=== PATIENT | male | born 1950 | race Caucasian/White ===

== ENCOUNTER 2017-03-14 11:08 | Inpatient (IN) | payer MEDICARE, OTHER ==
[~2017-03-14] VITALS: Ht 182.9 cm; Wt 139.2 kg
[2017-03-14] VITALS (7 sets, daily range): BP systolic 132–158; BP diastolic 69–83
[2017-03-14] MEDS ORDERED: AMLODIPINE BESY10 MG PO (15:12)
[2017-03-14] MEDS ORDERED: CHILDREN'S ASPI81 M1 PO (15:12)
[2017-03-14] MEDS ORDERED: ZYRTEC ALLERGY10 MG PO (15:12)
[2017-03-14] MEDS ORDERED: FLONASE ALLERG9.9 ML NS (15:14)
[2017-03-14] MEDS ORDERED: ZESTORETIC 20-1 EACH PO ×2 (15:15→15:18)
[2017-03-14] MEDS ORDERED: ZOCOR40 M1 PO (15:16)
[2017-03-14] MEDS ORDERED: NITROGLYCERIN0.4 M1 SL (15:16)
[2017-03-14] MEDS ORDERED: SYNTHROID137 MCG PO (15:17)
[2017-03-14] MEDS ORDERED: BETAPACE80 M1 PO (15:17)
[2017-03-14] MEDS ORDERED: LEVITRA20 M1 PO (15:17)
[2017-03-14] MEDS ORDERED: COUMADIN 5MG5 MG/TAB PO (15:18)
[2017-03-15 03:10] VITALS: BP 152/84
[2017-03-15 06:21] VITALS: BP 126/79
[2017-03-15 11:28] VITALS: BP 122/70
[2017-03-15 15:12] VITALS: BP 129/69
[2017-03-15 18:27] VITALS: BP 115/63
[2017-03-15 23:22] VITALS: BP 119/59
[2017-03-16] VITALS (8 sets, daily range): BP systolic 95–158; BP diastolic 52–89
[2017-03-17 02:36] VITALS: BP 145/83
[2017-03-17 06:26] VITALS: BP 100/56
[2017-03-17 11:13] VITALS: BP 130/77
[2017-03-17 14:47] VITALS: BP 115/70
[2017-03-17 18:24] VITALS: BP 122/77
[2017-03-17 23:09] VITALS: BP 151/95
[2017-03-18 03:15] VITALS: BP 141/76
[2017-03-18 06:34] VITALS: BP 147/81
== END 2017-03-18 10:34 | disposition short-term general hospital (02) | DRG 190 ==
LOC: MED/SURG 11:08
PROVIDERS: ADMIT Nurse Practitioner Family
DX: J44.0 Chronic obstructive pulmonary disease with (acute) lower respiratory infection (principal); I42.9 Cardiomyopathy, unspecified; Z68.41 Body mass index [BMI] 40.0-44.9, adult; I10 Essential (primary) hypertension; I48.0 Paroxysmal atrial fibrillation; F17.210 Nicotine dependence, cigarettes, uncomplicated; G47.33 Obstructive sleep apnea (adult) (pediatric); E66.01 Morbid (severe) obesity due to excess calories; K21.9 Gastro-esophageal reflux disease without esophagitis; Z95.5 Presence of coronary angioplasty implant and graft; Z79.01 Long term (current) use of anticoagulants; J18.9 Pneumonia, unspecified organism
CPT/HCPCS: J0696; J1650; J2930; J7030; Q9967

== ENCOUNTER → 2017-03-14 | Outpatient (CLI) | payer MEDICARE, OTHER ==
[~2017-03-14] MED LIST: AMLODIPINE BESY10 MG PO; BETAPACE80 M1 PO; CHILDREN'S ASPI81 M1 PO; COUMADIN 5MG5 MG/TAB PO; FLONASE ALLERG9.9 ML NS; LEVITRA20 M1 PO; NITROGLYCERIN0.4 M1 SL; SYNTHROID137 MCG PO; ZESTORETIC 20-1 EACH PO; ZOCOR40 M1 PO; ZYRTEC ALLERGY10 MG PO
== END ==
LOC: LAB 09:01 → RAD 09:01
DX: J16.8 Pneumonia due to other specified infectious organisms (principal); R06.02 Shortness of breath; R91.8 Other nonspecific abnormal finding of lung field

== ENCOUNTER → 2019-04-15 | Outpatient (CLI) | payer MEDICARE, OTHER | LOC: RAD 10:36 | DX: N50.9 Disorder of male genital organs, unspecified (principal) ==

== ENCOUNTER → 2021-06-05 | Outpatient (CLI) | payer MEDICARE, OTHER | LOC: RAD 08:44 | DX: I25.10 Atherosclerotic heart disease of native coronary artery without angina pectoris (principal); N28.1 Cyst of kidney, acquired; D35.00 Benign neoplasm of unspecified adrenal gland; K76.89 Other specified diseases of liver; R09.89 Other specified symptoms and signs involving the circulatory and respiratory systems; R93.89 Abnormal findings on diagnostic imaging of other specified body structures | CPT/HCPCS: Q9967 ==